=== PATIENT | female | born 1945 | race Caucasian/White ===

== ENCOUNTER 2018-02-05 10:22 | Day surgery (SDC) | payer OTHER ==
--- NOTE | 2018-02-04 16:28 | EKG ---
Test Date: 2018-02-04 Test Time: 10:50:36 Wick Tender: AMANDA MEASUREMENT RESULTS: Intervals: Rate: 52 ID: [id number] QRSD: 76 QT: 418 QTc: 388 [place]: P: 29 ID: [id number] QRS: -4 T: 37 INTERPRETIVE STATEMENTS: Sinus bradycardia Low voltage QRS Borderline ECG Compared to ECG 03/20/2014 12:37:59 Low QRS voltage now present Sinus rhythm no longer present Sinus arrhythmia no longer present Myocardial infarct finding no longer present Electronically Signed On 02-04-18 16:26:06 CDT by Kian Salazar
[2018-02-05] MEDS ORDERED: Ringers Lactate 1,000 ML IV ONE (10:47)
[2018-02-05] MEDS ORDERED: BOTU TOX TYPE A 100 UNIT/VIAL ID ONE (12:00)
[2018-02-05] MEDS ORDERED: MIDAZOLAM HCL 2 MG/2 ML INJ ONE (12:14)
[2018-02-05] MEDS ORDERED: PROPOFOL 200 MG/20 ML VIAL IV ONE (12:14)
[2018-02-05] MEDS ORDERED: FENTANYL CITR 100 MCG/2 ML ONE (12:14)
[2018-02-05] MEDS ORDERED: ROCURONIUM 50 MG/5 ML VIAL IV ONE (12:15)
[2018-02-05] MEDS ORDERED: ONDANSETRON HCL 40 MG/20 ML VIAL ONE (12:18)
[2018-02-05] MEDS ORDERED: NS 0.9% VIAL 10 ML ONE (12:36)
[2018-02-05] MEDS ORDERED: EPINEPHRINE/PF 1 MG/ML AMP ONE (12:37)
[2018-02-05] MEDS ORDERED: LIDOCAINE 1% W/EPI 1:100,000 MDV 50 ML VIAL ONE (12:37)
[2018-02-05] MEDS ORDERED: GLYCOPYRROLATE 0.2 MG/ML SYR ONE ×2 (13:02)
[2018-02-05] MEDS ORDERED: NEOSTIGMINE 1 MG/ML -5 ML SYRINGE ONE (13:03)
[2018-02-05] MEDS: MORPHINE 4 MG/ML SYR ONE ×2 (13:30→13:42)
[2018-02-05 13:55] VITALS: O2SAT 100
[2018-02-05 14:54] VITALS: BP 128/62; TEMP 97
--- NOTE | 2018-02-05 23:39 | OP ---
Date of Procedure: 02/05/2018 Surgeon: Ngoc Sahu MD Preoperative Diagnosis: Pharyngeal dysphagia. Postoperative Diagnosis: Pharyngeal dysphagia. Procedure: Rigid esophagoscopy with injection of botulinum A toxin. Indication For Procedure: Ms. Doe is a 72-year-old who presented with dysphagia. 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 The risks, benefits, and alternatives were discussed with the wyatt oliveira. After careful consideration, she opted for botulinum toxin injection. Description Of Procedure: The patient was brought to the operating room. She was placed under gener al anesthesia via oral endotracheal tube. A shoulder roll was placed and the neck was extended but t he head was supported. A tooth guard was placed and a rigid cervical esophagoscope was passed throug h the oral cavity to the hypopharynx and carefully advanced through the esophageal introitus. The sm all Zenker's diverticulum was noted with a prominent cricopharyngeal bar posterior to the lumen of th e esophagus. After confirming these findings, the esophagoscope was removed and the botulinum toxin was prepared in the following manner. A 100 unit bottle was reconstituted with 1.4 mL of preservativ e-free saline. The bottle was gently agitated. This resulted in 7 units per 0.1 mL of solution. Th is was drawn up in a 1 mL syringe and fitted with a sidekick rigid needle. This medication was then placed on the surgical field. The esophagoscope was again used to perform esophagoscopy and placed i nto position. The needle was advanced through the esophagoscope and injected into the left cricophar yngeus at approximately a 4 to 5 o'clock position. 0.1 mL of botulinum solution was injected. The n eedle was then replaced into an 8-8:30 position and an additional 0.1 mL was injected. Finally, the needle was carefully positioned at approximately 6 o'clock position and a third 0.1 mL aliquot of bot ulin solution was injected. The needle was removed. The area was carefully inspected. There was mi nimal bleeding. The esophagoscope was then carefully withdrawn, the tooth guard was removed, and the patient was returned to care of anesthesia for awakening and extubation in the operating room, which proceeded without difficulty. Complications: None. Specimens: None. Disposition: The patient will be discharged home later today in the care of her friend and follow up with Dr. Sahu in approximately 2 weeks. PAPO/MALIKA Voice ID: [id number] Report ID: [id number]
== END 2018-02-05 14:40 | disposition home or self-care (01) ==
LOC: OR 10:22
PROVIDERS: ATTEND Otolaryngology
PROC: 3E0G8GC Introduction of Other Therapeutic Substance into Upper GI, Via Natural or Artificial Opening Endoscopic (ICD-10-PCS; principal; 2018-02-05 12:45)
DX: R13.13 Dysphagia, pharyngeal phase (principal); J39.2 Other diseases of pharynx; R51 Headache; Z87.891 Personal history of nicotine dependence; Z88.6 Allergy status to analgesic agent; Z91.041 Radiographic dye allergy status; K21.9 Gastro-esophageal reflux disease without esophagitis; I10 Essential (primary) hypertension; G62.9 Polyneuropathy, unspecified; K22.5 Diverticulum of esophagus, acquired
CPT/HCPCS: 43192; 93005; J0585; J2250; J2405; J2710; J3010; J0171

== ENCOUNTER 2024-02-05 18:01 | Emergency (ER) | payer OTHER ==
[2024-02-05] MEDS ORDERED: CROTALIDAE ANTIVENIM 1 GM VIAL IV ONE (18:31)
[2024-02-05] MEDS ORDERED: NA CHLORIDE 0.9% 250 ML ONE (18:31)
[2024-02-05 18:43] LABS: Absolute Basophils 0.1 K/uL (0-0.5); Absolute Eosinophils 0.2 K/uL (0-0.5); Absolute Lymphocytes (CBC) 3.4 K/uL (0.7-4.9); Absolute Monocytes 0.8 K/uL (0.1-1.3); Absolute Neutrophil 4.4 K/uL (1.8-8.0); Eosinophils % 2.1 % (0-4.4); Hematocrit 33.8 % (36.0-45.0); Hemoglobin 11.4 g/dL (12.0-15.0); Lymphocytes % 38.3 % (15.3-44.8); MCH 30.9 pg (27.0-35.0); MCHC 33.6 g/dL (32.0-36.0); MCV 91.9 fL (80-100); MPV 7.6 fL (7.6-11.3); Monocytes % 9.2 % (3.3-12.3); Neutrophils % 49.4 % (41.7-73.7); Nucleated Red Blood Cells % 0.1 % (0-0); Platelets 280 thou/uL (152-406); RBC Red Blood Cell Count 3.68 M/uL (3.86-4.86); Red Cell Distribution Width 13.8 % (12.1-15.2)
[2024-02-05 18:44] LABS: D-Dimer 1.914 FEUug/mL (0-0.500); PTT, Activated Partial Thromb 26.5 SECONDS (24.3-36.9); Protime INR 0.98
[2024-02-05 18:58] LABS: ALT/SGPT 29 U/L (13-56); AST/SGOT 25 U/L (15-37); Albumin 3.7 g/dL (3.4-5.0); Albumin/Globulin Ratio 1.2 (1.1-1.8); Alkaline Phosphatase 72 U/L (45-117); BUN Blood Urea Nitrogen 25 mg/dL (7-18); Bicarbonate 27 mEq/L (21-32); Bilirubin Total 0.3 mg/dL (0.2-1.0); Globulin 3.2 g/dL (2.3-3.5); Glomerular Filtration Rate 25 ml/min (=/>90); Glucose Level 137 mg/dL (74-106); Protein, Total 6.9 g/dL (6.4-8.2); Sodium Level 139 mEq/L (136-145); Troponin High Sensitivity 4.1 pg/mL (<58.9)
[2024-02-05 19:07] LABS: Bilirubin Direct < 0.2 mg/dL (0-0.2); Bilirubin Indirect, Calculated 0.1 mg/dL (0.2-0.8)
--- NOTE | 2024-02-05 19:35 | ER ---
Nurse's Notes [facility] Name: Angela Doe Age: 78 yrs Sex: Female : 1945 Arrival Date: 02/05/2024 Time: 18:01 Bed 5 Private MD: Diagnosis: Toxic effect of snake venom;Puncture wound without foreign body of right hand, initial encounter Presentation: 02/04 18:16 Chief complaint: Patient states: Pt reports she was struck in the ring finger of her kb3 right hand by a baby copperhead snake approximately 45 minutes [employer]. Small wound noted to distal digit #4 on right hand. Swelling noted in digit #4, #%, and dorsal aspect of right hand. Swelling and redness marked. Coronavirus screen: Vaccine status: Patient reports receiving the 2nd dose of the covid vaccine. Client denies travel out of the [place] in the last 14 days. Ebola Screen: Patient negative for fever greater than or equal to 101.5 degrees Fahrenheit, and additional compatible Ebola Virus Disease symptoms Patient denies exposure to infectious person. Patient denies travel to an Ebola-affected area in the 21 days before illness onset. Initial Sepsis Screen: Does the patient meet any 2 criteria? No. Patient's initial sepsis screen is negative. Does the patient have a suspected source of infection? No. Patient's initial sepsis screen is negative. Risk Assessment: Do you want to hurt yourself or someone else? Patient reports no desire to harm self or others. Onset of symptoms was February 05, 2024 at 17:30. 18:16 Method Of Arrival: Ambulatory 3 18:16 Acuity: RAULITO 2 kb3 Triage Assessment: 18:19 Bite description: bite sustained to dorsal aspect of middle phalanx of right ring kb3 finger by a snake. General: Appears in no apparent distress. Behavior is calm, cooperative. Pain: Complains of pain in dorsal aspect of middle phalanx of right ring finger Pain does not radiate. Pain currently is 3 out of 10 on a pain scale. Quality of pain is described as burning, pressure. Injury Description: Puncture sustained to dorsal aspect of middle phalanx of right ring finger is snake bit, 2 small puncture wounds noted was sustained 30-60 minutes ago. 18:24 Bite description: animal information: Appearance: is Animal status: Baby copperhead. kb3 18:41 Bite description: animal information: vaccination(s) is unknown. mb9 Historical: - Allergies: 18:19 Aspirin; kb3 - Home Meds: 18:19 HTN medication [Active]; Cholesterol medication [Active]; acetaminophen-codeine 300-30 kb3 mg Oral tablet 1 tab as needed [Active]; - PMHx: 18:19 Osteoarthritis; Chronic back pain; Hypercholesterolemia; Hypertensive disorder; kb3 - PSHx: 18:19 Cholecystectomy; kb3 - Immunization history:: Adult Immunizations up to date, Client reports receiving the 2nd dose of the Covid vaccine, Last tetanus immunization: unknown. - Infectious Disease History:: Denies. - Social history:: Smoking status: Patient denies any tobacco usage or history of. Screenin:40 [facility] ED Fall Risk Assessment (Adult) History of falling in the last 3 months, mb9 including since admission No falls in past 3 months (0 pts) Confusion or Disorientation No (0 pts) Intoxicated or Sedated No (0 pts) Impaired Gait No (0 pts) Mobility Assist Device Used No (0 pt) Altered Elimination No (0 pt) Score/Fall Risk Level 0 - 2 = Low Risk Oriented to surroundings, Maintained a safe environment, Educated pt \T\ family on fall prevention, incl call for assistance when getting out of bed. Abuse screen: Denies threats or abuse. Nutritional screening: No deficits noted. Tuberculosis screening: No symptoms or risk factors identified. Assessment: 18:42 Pain: Complains of pain in right hand Pain radiates to right arm. Neuro: Level of mb9 Consciousness is awake, alert, obeys commands, Oriented to person, place, time, situation, Appropriate for age. Cardiovascular: Patient's skin is warm and dry. Respiratory: Airway is patent Respiratory effort is even, unlabored, Respiratory pattern is regular, symmetrical, Breath sounds are clear bilaterally. GI: Abdomen is flat, non-distended. : No signs and/or symptoms were reported regarding the genitourinary system. EENT: No signs and/or symptoms were reported regarding the EENT system. Derm: Skin is intact, Skin is pink, warm \T\ dry. Musculoskeletal: Swelling present in right hand. Injury Description: Bite sustained to right hand caused by chu head. 19:05 Reassessment: No changes from previously documented assessment. Patient and/or family mb9 updated on plan of care and expected duration. Pain level reassessed. Patient is alert, oriented x 3, equal unlabored respirations, skin warm/dry/pink. 21:35 General: Appears in no apparent distress. Behavior is calm, cooperative. Neuro: Level kd3 of Consciousness is awake, alert, obeys commands, Oriented to person, place, time, situation. Cardiovascular: Patient's skin is warm and dry. Respiratory: Airway is patent Trachea midline Respiratory effort is even, unlabored, Respiratory pattern is regular, symmetrical. Vital Signs: 18:16 BP 134 / 69; Pulse 70; Resp 18; Temp 98; Pulse Ox 99% ; Weight 65.77 kg; Height 5 ft. 2 kb3 in. ; Pain 3/10; 18:38 BP 124 / 54; Pulse 66; Resp 18; Pulse Ox 100% on R/A; ld1 18:16 Body Mass Index 26.52 (65.77 kg, 157.48 cm) kb3 18:16 Pain Scale: Adult kb3 ED Course: 18:16 Patient arrived in ED. kb3 18:19 Shawn August PA is PHCP. cp 18:19 Meet Medina DO is Attending Physician. cp 18:19 Triage completed. kb3 18:24 Arm band placed on left wrist. Patient placed in an exam room, on a stretcher, on kb3 night monitor, on pulse oximetry. cleaned. 18:29 Katherine Medina, RN is Primary Nurse. ld1 18:29 Rula Ga, LUISANA is Primary Nurse. mb9 18:41 Placed in gown. Bed in low position. Call light in reach. Side rails up X 1. Provided mbNi Education on: press call light if needing anything. Client placed on continuous cardiac and pulse oximetry monitoring. NIBP monitoring applied. telemetry monitor on. 18:41 Initial lab(s) drawn, by me, sent to lab. EKG done, by ED staff, reviewed by Shawn hawkins PA. Inserted saline lock: 20 gauge in right antecubital area, using aseptic technique. Blood collected. Flushed with 10 mL NS. 18:43 No provider procedures requiring assistance completed. mb9 19:10 Report given to Darren RN. Door closed. Noise minimized. Warm blanket given. mb9 Pillow given. 21:36 Patient transferred, IV remains in place. kd3 Administered Medications: 19:05 Drug: CroFab IV 6 vials IV at calculated rate once; may repeat at >=1 hour intervals mb9 until initial control of symptoms Route: IV; Rate: calculated rate; Site: left forearm; Medication: 18:41 VIS not applicable for this client. mb9 Outcome: 19:35 ER care complete, transfer ordered by MD. stevenson 21:36 Transferred by ground EMS to [facility], 3 21:36 Condition: stable 21:36 Discharge instructions given to patient, Instructed on discharge instructions, follow up and referral plans. Demonstrated understanding of instructions, follow-up care, medications, Prescriptions given X 1, 21:36 Patient left the ED. kd3 Signatures: Shawn August PA PA cp Sims, Lauren, LUISANA RN ld1 Elis Goldberg RN RN kd3 Natalie Najera, LUISANA RN kb3 Rula Ga, RN RN mb9
--- NOTE | 2024-02-05 19:35 | EDPHYS ---
Physician Documentation [facility] Name: Angela Doe Age: 78 yrs Sex: Female : 1945 Arrival Date: 02/05/2024 Time: 18:01 Bed 5 Private MD: ED Physician Meet Medina HPI: 02/04 18:25 This 78 yrs old Female presents to ER via Ambulatory with complaints of Snake bite. cp 18:25 The patient was bitten on the right hand, by a snake, while in the garden or yard, at home. Onset: The symptoms/episode began/occurred 45 minute(s) ago. 18:25 Associated signs and symptoms: Pertinent positives: swelling at site, Pertinent cp negatives: fever, motor deficit, numbness distal to wound, suspected foreign body. Severity of symptoms: in the emergency department the symptoms are actually worse, mildly. 18:25 Patient is a 78-year-old female with history of hypertension who reports she was in her cp yard about 45 minutes prior to arrival when she reached for plant and felt a sharp prick. She looked and saw what appeared to be a copperhead snake. She has the decapitated snake and a small jar that she has brought to the emergency department. She started to observe swelling to the back of her right hand. Denies any significant pain but admits to taking pain medication prior to arrival. Denies any shortness of breath and/or chest pain. Historical: - Allergies: 18:19 Aspirin; kb3 - Home Meds: 18:19 HTN medication [Active]; Cholesterol medication [Active]; acetaminophen-codeine 300-30 kb3 mg Oral tablet 1 tab as needed [Active]; - PMHx: 18:19 Osteoarthritis; Chronic back pain; Hypercholesterolemia; Hypertensive disorder; kb3 - PSHx: 18:19 Cholecystectomy; kb3 - Immunization history:: Adult Immunizations up to date, Client reports receiving the 2nd dose of the Covid vaccine, Last tetanus immunization: unknown. - Infectious Disease History:: Denies. - Social history:: Smoking status: Patient denies any tobacco usage or history of. ROS: 18:30 Constitutional: Negative for fever, cp 18:30 Skin: Positive for of the right hand, snake bite, cp 18:30 Eyes: Negative for injury, pain, redness, and discharge, cp 18:30 ENT: Negative for drainage from ear(s), ear pain, sore throat, difficulty swallowing, difficulty handling secretions, 18:30 Cardiovascular: Negative for chest pain, palpitations, 18:30 Respiratory: Negative for cough, shortness of breath, wheezing, 18:30 Abdomen/GI: Negative for abdominal pain, vomiting, diarrhea, constipation, 18:30 Neuro: Negative for altered mental status, dizziness, headache, weakness, 18:30 All other systems are negative, cp Exam: 18:35 Constitutional: The patient appears in no acute distress, alert, awake, comfortable, cp non-diaphoretic, non-toxic, well developed, well nourished, 18:35 Head/Face: Normocephalic, atraumatic. cp 18:35 Eyes: Periorbital structures: appear normal, Conjunctiva: normal, no exudate, no injection, Sclera: no appreciated abnormality, Lids and lashes: appear normal, bilaterally, 18:35 ENT: External ear(s): are unremarkable, Nose: is normal, Mouth: Lips: moist, Oral mucosa: pink and intact, moist, Posterior pharynx: Airway: no evidence of obstruction, patent, 18:35 Chest/axilla: Inspection: normal, 18:35 Cardiovascular: Rate: normal, Rhythm: regular, Edema: is not appreciated, JVD: is not appreciated, 18:35 Respiratory: the patient does not display signs of respiratory distress, Respirations: normal, no use of accessory muscles, no retractions, labored breathing, is not present, Breath sounds: are clear throughout, no decreased breath sounds, no stridor, no wheezing, 18:35 Abdomen/GI: Exam negative for discomfort, distension, guarding, Inspection: abdomen appears normal, 18:35 Back: pain, is absent, ROM is normal, 18:35 Musculoskeletal/extremity: Extremities: noted in the right hand: superficial puncture wounds noted proximal right fourth finger, swelling noted of right third thru fifth fingers that advances proximal to dorsum of hand, mild erythema, Perfusion: the extremity is normally perfused throughout, 18:35 Neuro: Orientation: to person, place \T\ time. Mentation: is normal, Motor: moves all fours, strength is normal, Sensation: no obvious gross deficits, 18:40 ECG was reviewed by the Attending Physician. cp Vital Signs: 18:16 BP 134 / 69; Pulse 70; Resp 18; Temp 98; Pulse Ox 99% ; Weight 65.77 kg; Height 5 ft. 2 kb3 in. ; Pain 3/10; 18:38 BP 124 / 54; Pulse 66; Resp 18; Pulse Ox 100% on R/A; ld1 18:16 Body Mass Index 26.52 (65.77 kg, 157.48 cm) kb3 18:16 Pain Scale: Adult kb3 MDM: 19:35 Patient medically screened. cp 19:45 Data reviewed: vital signs, nurses notes, lab test result(s), I have discussed the cp patient's presentation/case with the attending Emergency Department Physician; and as a result, I will transfer patient. 19:45 Differential diagnosis: cellulitis, sepsis, toxic envenomation, non-toxic envenomation. cp I considered the following discharge prescriptions or medication management in the emergency department Medications were administered in the Emergency Department. See MAR. Independent interpretation of the following test(s) in the Emergency Department EKG: See my EKG interpretation above. Care significantly affected by the following chronic conditions: Hypertension. Counseling: I had a detailed discussion with the patient and/or guardian regarding the historical points, exam findings, and any diagnostic results supporting the discharge/admit diagnosis, lab results, the need to transfer to another facility, for higher level of care. Response to treatment: the patient's symptoms have mildly improved after treatment. 02/04 18:22 Order name: Basic Metabolic Panel; Complete Time: 19:44 cp 02/04 19:44 Interpretation: Normal except: CL 108; GLUC 137; BUN 25; CRE 2.03; GFR 25. cp 02/04 18:22 Order name: CBC with Diff; Complete Time: 19:44 cp 02/04 19:44 Interpretation: Normal except: RBC 3.68; HGB 11.4; HCT 33.8. cp 02/04 18:22 Order name: LFT's; Complete Time: 19:44 cp 02/04 18:22 Order name: PT-INR; Complete Time: 19:44 cp 02/04 18:22 Order name: Troponin HS; Complete Time: 19:44 cp 02/04 18:22 Order name: Ptt, Activated; Complete Time: 19:44 cp 02/04 18:22 Order name: Fibrinogen; Complete Time: 19:44 cp 02/04 19:45 Interpretation: Within normal limits. cp 02/04 18:22 Order name: D-Dimer; Complete Time: 19:44 cp 02/04 19:45 Interpretation: Abnormal: D-DIMER 1.914. cp 02/04 18:22 Order name: Cardiac monitoring; Complete Time: 18:38 cp 02/04 18:22 Order name: EKG - Nurse/Tech; Complete Time: 18:38 cp 02/04 18:22 Order name: IV Saline Lock; Complete Time: 18:29 cp 02/04 18:22 Order name: Labs collected and sent; Complete Time: 18:29 cp 02/04 18:22 Order name: O2 Per Protocol; Complete Time: 18:26 cp 02/04 18:22 Order name: O2 Sat Monitoring; Complete Time: 18:26 cp EC:40 Rate is 62 beats/min. Rhythm is regular. ND interval is normal. QRS interval is normal. cp QT interval is normal. T waves are Inverted in lead aVR. Interpreted by me. Reviewed by me. Administered Medications: 19:05 Drug: CroFab IV 6 vials IV at calculated rate once; may repeat at >=1 hour intervals mb9 until initial control of symptoms Route: IV; Rate: calculated rate; Site: left forearm; Disposition: 21:36 I reviewed the patient's care provided by Advanced Practice Provider \T\ agree w/ the ms3 diagnosis \T\ care plan. I personally saw the pt \T\ performed a substantive portion of the visit, incldng all aspects of the (History/Exam/Medical Decision Making). PA/PRINCIPAL SECRETARY's history reviewed, patient interviewed, and examined. HPI: 78-year-old female presents emergency department 45 minutes after being bitten by a copperhead on the right fourth digit with hands swelling. My personal exam of patient reveals: On exam patient is alert and orient x 4, no apparent distress, nontoxic-appearing, speaking full sentences. Heart rate and rhythm are regular without murmurs rubs or gallops. Lungs are clear to auscultation bilaterally. Patient's right fourth digit and proximal hand with erythema and swelling. Agree with administration of CroFab I agree with assessment and care plan and confirm the diagnosis (es) above. Disposition Summary: 02/05/24 19:35 Transfer Ordered Notes: Reason: Higher level of care cp Condition: Stable cp Problem: new cp Symptoms: have improved cp Transfer Location: [facility](02/05/24 21:05) cp Accepting Physician: DR Shane(02/05/24 21:36) kd3 Diagnosis - Toxic effect of snake venom cp - Puncture wound without foreign body of right hand, initial encounter cp Forms: - Medication Reconciliation Form cp - SBAR form cp Critical care time excluding procedures: 21:36 Critical care time: Bedside Care: 40 minutes. Total time: 40 minutes ms3 Signatures: Dispatcher [employer] EDMS Shawn August PA PA cp Meet Medina, DO ms3 Elis Goldberg, RN RN kd3 Natalie Najera, RN RN kb3 Rula Ga, RN RN mb9 Corrections: (The following items were deleted from the chart) 18:23 18:23 BASIC METABOLIC PANEL+C.LAB.BRZ ordered. EDMS EDMS 18:23 18:23 CBC+H.LAB.BRZ ordered. EDMS EDMS 18:23 18:23 HEPATIC FUNCTION+C.LAB.BRZ ordered. EDMS EDMS 18:23 18:23 PROTIME (+INR)+COAG.LAB.BRZ ordered. EDMS EDMS 18:23 18:23 Troponin High Sensitivity+C.LAB.BRZ ordered. EDMS EDMS 18:23 18:23 PTT, ACTIVATED+COAG.LAB.BRZ ordered. EDMS EDMS 18:23 18:23 FIBRINOGEN+COAG.LAB.BRZ ordered. EDMS EDMS 18:23 18:23 D-DIMER+COAG.LAB.BRZ ordered. EDMS EDMS 21:05 19:35 Doctor cp cp 21:05 19:35 [facility] cp cp 21:36 21:05 DR Shane cp kd3 21:38 19:53 I was immediately available on-site in the Emergency Department for consultation ms3 in the care of the patient. ms3
[2024-02-05 22:15] VITALS: TEMP 98
[2024-02-05 22:17] VITALS: BP 124/54; O2SAT 100
--- NOTE | 2024-02-09 12:48 | EKG ---
Test Date: 2024-02-05 Test Time: 18:34:01 Banking Center Manager: RUDDY MEASUREMENT RESULTS: Intervals: Rate: 62 IA: 188 QRSD: 68 QT: 388 QTc: 393 [place]: P: 41 IA: 188 QRS: -18 T: 47 INTERPRETIVE STATEMENTS: Normal sinus rhythm Low voltage QRS Borderline ECG Compared to ECG 02/04/2018 10:50:36 Sinus bradycardia no longer present Electronically Signed On 02-09-24 12:42:32 CDT by Narciso Gaston
== END 2024-02-05 21:36 | disposition short-term general hospital (02) ==
LOC: ER 18:01
DX: T63.091A Toxic effect of venom of other snake, accidental (unintentional), initial encounter (principal); S61.431A Puncture wound without foreign body of right hand, initial encounter
CPT/HCPCS: 85025; 80048; 36415; 85384; 85610; 85379; 80076; 85730; 84484; 96374; 99285; J0840; J7050; 93005